=== PATIENT | female | born 1950 | race Caucasian/White ===

== ENCOUNTER 2021-08-27 13:58 | Outpatient (CLI) | payer MEDICARE, OTHER | END 2021-08-27 13:59 | disposition home or self-care (01) | LOC: CSHMAMMO 13:58 | PROVIDERS: ATTEND Internal Medicine | DX: Z12.31 Encounter for screening mammogram for malignant neoplasm of breast (principal) | CPT/HCPCS: 77063; 77067 ==

== ENCOUNTER 2023-10-09 14:03 | Outpatient (CLI) | payer MEDICARE, OTHER | END 2023-10-09 14:04 | disposition home or self-care (01) | LOC: CSHMAMMO 14:03 | PROVIDERS: ATTEND Internal Medicine | DX: Z12.31 Encounter for screening mammogram for malignant neoplasm of breast (principal) | CPT/HCPCS: 77063; 77067 ==